=== PATIENT | female | born 1950 | race Caucasian/White ===

== ENCOUNTER → 2016-10-05 | Outpatient (CLI) | payer MEDICARE, BC ==
--- NOTE | 2016-10-05 12:13 | BD ---
EXAMINATION TYPE: MG DEXA axial skeleton. DATE OF EXAM: 10/05/2016 CLINICAL HISTORY: Postmenopausal state. Height: 66 Weight: 226 FRAX RISK QUESTIONS: Alcohol (3 or more units per day): no Family History (Parent hip fracture): yes, mother Glucocorticoids (More than 3mos): inhaler only as needed for several years (Ex: prednisone, prednisolone, methylprednisolone, dexamethasone, and hydrocortisone). History of Fracture in Adulthood: no Secondary Osteoporosis: 1. Type 1 Diabetes: no 2. Hyperthyroidism: no 3. Menopause before 45: no, age 50 but hysterectomy age 42 4. Malnutrition: no 5. Chronic liver disease: no Rheumatoid Arthritis: no Current Tobacco Use: no RISK FACTORS HISTORY OF: Family History of Osteoporosis: yes, mother Active: yes Diet low in dairy products/other sources of calcium: at least one serving a day Postmenopausal woman: yes Take estrogen and/or progesterone medications: not now How long: hormonal contraceptives about 5 years when younger Lost more than 2 inches in height since high school: no Frequent falls: no Poor Health: no Hyperparathyroidism: no Adrenal Insufficiency: no MEDICATIONS: Prednisone or other steroids:inhaler only as needed How Long: for several years Thyroid Medications: yes Which medication: [place] How Long: about 20 years Osteoporosis Medications: no Additional Medications: blood pressure meds, baby aspirin, cholesterol meds Additional History: hypothyroid, diagnosed with asthma EXAM MEASUREMENTS: Bone mineral densitometry was performed using the [employer] System. Bone mineral density as measured about the Lumbar spine is: ----- L1-L4(G/cm2): 1.305 T Score Values are as follows: ----- L2: 4.0 ----- L3: 2.0 ----- L4: -0.9 ----- L1-L4: 1.0 Bone mineral density not previously done at this facility; previously done at a physician office Bone mineral density about the R hip (g/cm2): 1.046 Bone mineral density about the L hip (g/cm2): 0.987 T Score values are as follows: -----R Neck: 0.1 -----L Neck: -0.4 -----R Total: 0.8 -----L Total: 0.3 Bone mineral density not previously done at this facility; previously done at a physician office IMPRESSION: Normal (Values between +1 and -1 indicate normal bone mass). Consider repeating this study in 5 year s or sooner if there is some new clinical indication. NOTE: T-SCORE=SD OF THE YOUNG ADULT MEAN.
--- NOTE | 2016-10-07 08:51 | MM ---
Reason for exam: screening (asymptomatic). Last mammogram was performed 1 year and 4 months ago. History: Patient is postmenopausal and history of other cancer. Benign stereotactic core biopsy of the left breast, July 30, 1999. Cyst aspiration of the right breast. Took hormonal contraceptives for 5 years beginning at age 21. Physical Findings: A clinical breast exam by your physician is recommended on an annual basis and results should be correlated with mammographic findings. MG 3D Screening Mammo W/Cad Bilateral CC and MLO view(s) were taken. Prior study comparison: May 31, 2015, bilateral MG 3d screening mammo w/cad. April 06, 2014, bilateral MG screening mammo w CAD. The breast tissue is almost entirely fat. Previous mammotome biopsy within the left breast. Asymmetric breast tissue in the left breast. This finding is changed when compared with previous exams. ASSESSMENT: Incomplete: need additional imaging evaluation, BI-RAD 0 RECOMMENDATION: Special view mammogram of the left breast. If lesion persists on supplemental views, image directed ultrasound is recommended. [facility] will attempt to contact patient to return for supplemental views and ultrasound if indicated.
== END | disposition home or self-care (01) ==
LOC: RADMAMWWP 08:21
PROVIDERS: ATTEND Family Medicine
DX: Z12.31 Encounter for screening mammogram for malignant neoplasm of breast (principal); Z78.0 Asymptomatic menopausal state
CPT/HCPCS: 77080; 77063; G0202

== ENCOUNTER → 2016-10-09 | Outpatient (CLI) | payer MEDICARE, BC ==
--- NOTE | 2016-10-13 07:21 | MM ---
Reason for exam: additional evaluation requested from abnormal screening. Last mammogram was performed less than 1 month ago. History: Patient is postmenopausal and history of other cancer. Benign stereotactic core biopsy of the left breast, July 30, 1999. Cyst aspiration of the right breast. Took hormonal contraceptives for 5 years beginning at age 21. Physical Findings: Nurse did not find any significant physical abnormalities on exam. MG 3D Work Up W/Cad LT ML and spot compression MLO view(s) were taken of the left breast. Prior study comparison: October 05, 2016, bilateral MG 3d screening mammo w/cad. The breast tissue is heterogeneously dense. This may lower the sensitivity of mammography. There is no discrete abnormality.and disperses on compression. No significant new findings when compared with previous films. These results were verbally communicated with the patient and result sheet given to the patient on 10/09/16. ASSESSMENT: Benign, BI-RAD 2 RECOMMENDATION: Return to routine screening mammogram schedule for both breasts.
== END ==
LOC: RADMAMWWP 14:27
PROVIDERS: ATTEND Family Medicine
DX: R92.8 Other abnormal and inconclusive findings on diagnostic imaging of breast (principal)
CPT/HCPCS: G0206; G0279

== ENCOUNTER → 2017-09-30 | Outpatient (CLI) | payer MEDICARE, BC ==
--- NOTE | 2017-09-30 09:09 | US ---
EXAMINATION TYPE: US thyroid st tissue head/neck DATE OF EXAM: 09/30/2017 COMPARISON: NONE CLINICAL HISTORY: E03.8 HYPOTHYROIDISM. GLAND SIZE: Right Lobe: 3.2 x 1.3 x 0.5 cm Overall Parenchyma: homogenous Left Lobe: 3.2 x 1.2 x 0.8 cm Overall Parenchyma: homogeneous Isthmus Thickness: 0.1 cm NODULES RIGHT: # of nodules measured on right: 0 LEFT: # of nodules measured on left: 0 ISTHMUS: # of nodules measured in the isthmus: 0 Bilateral neck scanned, no evidence of lymphadenopathy. IMPRESSION: 1. Normal thyroid scan
== END | disposition home or self-care (01) ==
LOC: RADUSWWP 06:49
PROVIDERS: ATTEND Internal Medicine Endocrinology, Diabetes & Metabolism
DX: E03.8 Other specified hypothyroidism (principal)
CPT/HCPCS: 76536

== ENCOUNTER → 2017-12-13 | Outpatient (CLI) | payer MEDICARE, BC ==
--- NOTE | 2017-12-15 10:52 | MM ---
Reason for exam: screening (asymptomatic). Last mammogram was performed 1 year and 2 months ago. History: Patient is postmenopausal and history of other cancer. Benign stereotactic core biopsy of the left breast, July 30, 1999. Cyst aspiration of the right breast. Took hormonal contraceptives for 5 years beginning at age 21. Physical Findings: A clinical breast exam by your physician is recommended on an annual basis and results should be correlated with mammographic findings. MG 3D Screening Mammo W/Cad Bilateral CC and MLO view(s) were taken. Prior study comparison: October 09, 2016, left breast MG 3d work up w/cad LT. October 05, 2016, bilateral MG 3d screening mammo w/cad. There are scattered fibroglandular densities. Previous mammotome biopsy in the left breast. Focal asymmetry right inner CC view, stable. No significant changes when compared with prior studies. ASSESSMENT: Benign, BI-RAD 2 RECOMMENDATION: Routine screening mammogram of both breasts in 1 year.
== END | disposition home or self-care (01) ==
LOC: RADMAMWWP 16:26
PROVIDERS: ATTEND Family Medicine
DX: Z12.31 Encounter for screening mammogram for malignant neoplasm of breast (principal)
CPT/HCPCS: 77063; 77067

== ENCOUNTER → 2018-06-28 | Outpatient (CLI) | payer MEDICARE ==
--- NOTE | 2018-06-28 09:01 | CT ---
EXAMINATION TYPE: CT sinus wo con DATE OF EXAM: 06/28/2018 COMPARISON: None HISTORY: chronic sinusitis CT DLP: 660.4 mGycm. Automated Exposure Control for Dose Reduction was Utilized. TECHNIQUE: CT scan of the sinuses is performed without contrast, axial images are obtained, coronal r eformatted images are also reviewed. FINDINGS: Hyperostosis of the frontal bone noted. Mild mucosal thickening involving the ethmoid air c ells and right maxillary sinus. 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 There is a nasal septal deviation to the right. Mastoid, sphenoid and frontal sinuses demonstrate no abnormal soft tissue attenuation. The ostiomeatal comple x is patent bilaterally on the coronal images. Visualized portion of mastoid air cells show no abnormal opacification. The globes are intact bilate rally. IMPRESSION: 1. Changes of mild chronic cystitis.
== END ==
LOC: RADCTMAIN 08:27
PROVIDERS: ATTEND Otolaryngology
DX: J32.9 Chronic sinusitis, unspecified (principal)
CPT/HCPCS: 70486

== ENCOUNTER → 2018-12-14 | Outpatient (CLI) | payer MEDICARE ==
--- NOTE | 2018-12-14 13:37 | MM ---
Reason for exam: screening (asymptomatic). Last mammogram was performed 1 year ago. History: Patient is postmenopausal and has history of other cancer at age 48. Benign stereotactic core biopsy of the left breast, July 30, 1999. Took hormonal contraceptives for 5 years beginning at age 21. Physical Findings: A clinical breast exam by your physician is recommended on an annual basis and results should be correlated with mammographic findings. MG Screening Mammo w CAD Bilateral CC and MLO view(s) were taken. Prior study comparison: December 13, 2017, bilateral MG 3d screening mammo w/cad. October 09, 2016, left breast MG 3d work up w/cad LT. There are scattered fibroglandular densities. Benign appearing bilateral calcifications. No suspicious abnormality. Left biopsy marker noted. No significant changes when compared with prior studies. ASSESSMENT: Benign, BI-RAD 2 RECOMMENDATION: Routine screening mammogram of both breasts in 1 year.
== END | disposition home or self-care (01) ==
LOC: RADMAMWWP 09:26
PROVIDERS: ATTEND Family Medicine
DX: Z12.31 Encounter for screening mammogram for malignant neoplasm of breast (principal)
CPT/HCPCS: 77067

== ENCOUNTER → 2019-12-19 | Outpatient (CLI) | payer MEDICARE ==
--- NOTE | 2019-12-20 08:31 | MM ---
Reason for exam: screening (asymptomatic). Last mammogram was performed 1 year ago. History: Patient is postmenopausal and has history of other cancer at age 48. Benign stereotactic core biopsy of the left breast, July 30, 1999. Took hormonal contraceptives for 5 years beginning at age 21. Physical Findings: A clinical breast exam by your physician is recommended on an annual basis and results should be correlated with mammographic findings. MG 3D Screening Mammo W/Cad Bilateral CC and MLO view(s) were taken. Prior study comparison: December 14, 2018, bilateral MG screening mammo w CAD. December 13, 2017, bilateral MG 3d screening mammo w/cad. There are scattered fibroglandular densities. Stable benign calcifications. There is no discrete abnormality. No significant changes when compared with prior studies. ASSESSMENT: Benign, BI-RAD 2 RECOMMENDATION: Routine screening mammogram of both breasts in 1 year.
== END | disposition home or self-care (01) ==
LOC: RADMAMWWP 09:39
PROVIDERS: ATTEND Family Medicine
DX: Z12.31 Encounter for screening mammogram for malignant neoplasm of breast (principal)
CPT/HCPCS: 77063; 77067

== ENCOUNTER → 2020-01-26 | Outpatient (CLI) | payer MEDICARE ==
--- NOTE | 2020-01-26 16:10 | BD ---
EXAMINATION TYPE: Axial Bone Density DATE OF EXAM: 01/26/2020 COMPARISON: NONE CLINICAL HISTORY: Height: 5 FT 6 IN Weight: 224 FRAX RISK QUESTIONS: Alcohol (3 or more units per day): NO Family History (Parent hip fracture): YES Glucocorticoids (More than 3mos): INHALER NEEDED RARELY (Ex: prednisone, prednisolone, methylprednisolone, dexamethasone, and hydrocortisone). History of Fracture in Adulthood: NO Secondary Osteoporosis: 1. Type 1 Diabetes: NO 2. Hyperthyroidism: NO 3. Menopause before 45: NO 4. Malnutrition: NO 5. Chronic liver disease: NO Rheumatoid Arthritis: NO Current Tobacco Use: NO RISK FACTORS HISTORY OF: Family History of Osteoporosis: YES Active: SOMEWHAT Diet low in dairy products/other sources of calcium: NO Postmenopausal woman: PART HYST AGE 42 SYMPTOMS AGE 50 Take estrogen and/or progesterone medications: NONE Lost more than 2 inches in height since high school: YES MEDICATIONS: Thyroid Medications: YES Which medication: SYNTHROID How Lon YEARS Additional Medications: SYNTHROID,BLOOD PRESSURE MEDS, BABY ASPIRIN, CHOLESTEROL MEDS, PAXIL, ANXIET Y MEDS Additional History: EXAM MEASUREMENTS: Bone mineral densitometry was performed using the [employer]. Bone mineral density as measured about the Lumbar spine is: ----- L1-L4(G/cm2): 1.344 T Score Values are as follows: ----- L2: 3.2 ----- L3: 3.1 ----- L4: 0.0 ----- L1-L4: 1.4 Bone mineral density has: INCREASED 4.9 % since study of: 2017 Bone mineral density about the R hip (g/cm2): 0.940 Bone mineral density about the L hip (g/cm2): 0949 T Score values are as follows: -----R Neck: -0.7 -----L Neck: -0.6 -----R Total: 0.2 -----L Total: -0.1 Bone mineral density has: DECREASED -5.9 % since study of: 2017 IMPRESSION: Normal (Values between +1 and -1 indicate normal bone mass). Consider repeating this study in 5 year s or sooner if there is some new clinical indication. NOTE: T-SCORE=SD OF THE YOUNG ADULT MEAN.
== END | disposition home or self-care (01) ==
LOC: RADBDWWP 09:57
PROVIDERS: ATTEND Obstetrics & Gynecology
DX: M89.9 Disorder of bone, unspecified (principal)
CPT/HCPCS: 77080

== ENCOUNTER → 2021-01-09 | Outpatient (CLI) | payer SELFPAY ==
--- NOTE | 2021-01-10 12:40 | MM ---
Reason for exam: screening (asymptomatic). Last mammogram was performed 1 year and 1 month ago. History: Patient is postmenopausal and has history of other cancer at age 48. Benign stereotactic core biopsy of the left breast, July 30, 1999. Took hormonal contraceptives for 5 years beginning at age 21. Physical Findings: A clinical breast exam by your physician is recommended on an annual basis and results should be correlated with mammographic findings. MG 3D Screening Mammo W/Cad Bilateral CC and MLO view(s) were taken. Prior study comparison: December 19, 2019, bilateral MG 3d screening mammo w/cad. December 14, 2018, bilateral MG screening mammo w CAD. Finding: There are intermediate concern, suspicious grouped/clustered, fine calcifications in the outer quadrant, middle position of the left breast 8cm from the nipple. Previous mammotome biopsy in the left breast. New finding since December 19, 2019 and December 14, 2018. ASSESSMENT: Incomplete: need additional imaging evaluation, BI-RAD 0 RECOMMENDATION: Special view mammogram of the left breast. [facility] will attempt to contact patient to return for supplemental views.
== END | disposition home or self-care (01) ==
LOC: RADMAMWWP 15:51
PROVIDERS: ATTEND Family Medicine
DX: Z12.31 Encounter for screening mammogram for malignant neoplasm of breast (principal); Z78.0 Asymptomatic menopausal state; Z85.89 Personal history of malignant neoplasm of other organs and systems
CPT/HCPCS: 77063; 77067

== ENCOUNTER → 2021-01-20 | Outpatient (CLI) | payer MEDICARE ==
[~2021-01-20] MED LIST: BAMLANIVIMAB (EUA) 700 MG, ETESEVIMAB (EUA) 1,400 MG in SODIUM CHLORIDE 0.9% 50 ML IVPB NR; SODIUM CHLORIDE 0.9% 50 ML IVPB NR; SODIUM CHLORIDE 0.9% 500 ML 500 ML in EMPTY BAG 1 BAG IV PRN
[2021-01-20 08:35] VITALS: RESP 16; TEMP 96.4
[2021-01-20 09:39] VITALS: BP 148/78; PULSE 68
== END ==
LOC: PROCWHC3 08:01
PROVIDERS: ATTEND Nurse Practitioner Family
DX: U07.1 COVID-19 (principal); E66.9 Obesity, unspecified; Z68.35 Body mass index [BMI] 35.0-35.9, adult; Z88.0 Allergy status to penicillin
CPT/HCPCS: 96360; J3490; M0245

== ENCOUNTER → 2021-01-28 | Outpatient (CLI) | payer MEDICARE ==
--- NOTE | 2021-01-28 12:21 | MM ---
Reason for exam: additional evaluation requested from abnormal screening. Last mammogram was performed 1 month ago. History: Patient is postmenopausal and has history of other cancer at age 48. Benign stereotactic core biopsy of the left breast, July 30, 1999. Took hormonal contraceptives for 5 years beginning at age 21. Physical Findings: Nurse did not find any significant physical abnormalities on exam. MG 3D Work Up W/Cad LT CC with magnification, MLO with magnification, LM with magnification, and LM view(s) were taken of the left breast. Prior study comparison: December 19, 2019, bilateral MG 3d screening mammo w/cad. December 14, 2018, bilateral MG screening mammo w CAD. December 13, 2017, bilateral MG 3d screening mammo w/cad. October 05, 2016, bilateral MG 3d screening mammo w/cad. April 06, 2014, bilateral MG screening mammo w CAD. There are scattered fibroglandular densities. There is no discrete abnormality. No significant new findings when compared with previous films. These results were verbally communicated with the patient and result sheet given to the patient on 01/28/21. ASSESSMENT: Benign, BI-RAD 2 RECOMMENDATION: Return to routine screening mammogram schedule for both breasts.
== END | disposition home or self-care (01) ==
LOC: RADMAMWWP 10:41
PROVIDERS: ATTEND Family Medicine
DX: R92.8 Other abnormal and inconclusive findings on diagnostic imaging of breast (principal); Z78.0 Asymptomatic menopausal state
CPT/HCPCS: 77065; G0279; 77061

== ENCOUNTER → 2021-10-14 | Outpatient (CLI) | payer MEDICARE ==
--- NOTE | 2021-10-14 11:16 | US ---
EXAMINATION TYPE: US transvaginal DATE OF EXAM: 10/14/2021 COMPARISON: US pelvis 2016 CLINICAL HISTORY: R10.2 PELVIC PAIN,Z80.41 FAM HX OVARIAN CA. Partial hysterectomy, Pelvic pain, sist er with h/o ovarian CA TECHNIQUE: Transvaginal (TV). Transvaginal sonographic images of the pelvis were acquired. EXAM MEASUREMENTS: Uterus: Surgically absent Endometrial Stripe: Surgically absent Right Ovary: Not visualized due to overlying bowel Left Ovary: Not visualized due to overlying bowel 1. Uterus: Surgically absent 2. Endometrium: Surgically absent 3. Right Ovary: Obscured by overlying bowel gas 4. Left Ovary: Obscured by overlying bowel gas 5. Bilateral Adnexa: wnl 6. Posterior cul-de-sac: wnl Uterus remains surgically absent. No free fluid in the pelvis. Neither ovary identified. No adnexal m asses seen on images saved. IMPRESSION: As above. No significant change from 2016 ultrasound.
== END | disposition home or self-care (01) ==
LOC: RADUSWWP 10:21
PROVIDERS: ATTEND Obstetrics & Gynecology
DX: R10.2 Pelvic and perineal pain (principal); Z80.41 Family history of malignant neoplasm of ovary
CPT/HCPCS: 76830

== ENCOUNTER → 2021-10-15 | Outpatient (CLI) | payer MEDICARE | END | disposition home or self-care (01) | LOC: LABWHC1 10:53 | PROVIDERS: ATTEND Obstetrics & Gynecology | DX: R10.2 Pelvic and perineal pain (principal); Z80.41 Family history of malignant neoplasm of ovary | CPT/HCPCS: 36415; 86304 ==

== ENCOUNTER → 2022-02-06 | Outpatient (CLI) | payer MEDICARE ==
--- NOTE | 2022-02-09 12:59 | MM ---
Reason for Exam: Screening (asymptomatic). Last screening mammogram was performed 12 month(s) ago. Patient History: Menarche at age 14. First Full-Term at age 26. Hysterectomy at age 42. Postmenopausal. Other cancer, age 48. Hormonal Contraceptives, starting at age 21 for 5 years. 07/30/1999, Benign Stereotactic Core Biopsy on the left side. Risk Values: Valentine 5 year model risk: 2.3%. NCI Lifetime model risk: 6.6%. Prior Study Comparison: 12/19/2019 Bilateral Screening Mammogram, [facility]. 01/09/2021 Bilateral Screening Mammogram, [facility]. 01/28/2021 Left Diagnostic Mammogram, [facility]. Tissue Density: There are scattered fibroglandular densities. Findings: Analyzed By CAD. Unchanged asymmetric density lateral left CC view. Microclip lateral left breast from prior biopsy. A few scattered benign round calcifications remain. No significant change from prior exams. Overall Assessment: Benign, BI-RAD 2 Management: Screening Mammogram of both breasts in 1 year. 1. Patient should continue monthly self breast exams. 2. A clinical breast exam by your physician is recommended on an annual basis. 3. This exam should not preclude additional follow-up of suspicious palpable abnormalities. Electronically signed and approved by: Won Perkins M.D. Radiologist
== END | disposition home or self-care (01) ==
LOC: RADMAMWWP 12:40
PROVIDERS: ATTEND Family Medicine
DX: Z12.31 Encounter for screening mammogram for malignant neoplasm of breast (principal); Z78.0 Asymptomatic menopausal state
CPT/HCPCS: 77063; 77067

== ENCOUNTER → 2023-01-22 | Outpatient (CLI) | payer MEDICARE ==
--- NOTE | 2023-01-22 18:09 | CT ---
EXAMINATION TYPE: CT left knee - [facility]ANNA[place] Protocol CT DLP: 1065 mGycm, Automated exposure control for dose reduction was used. DATE OF EXAM: 01/22/2023 5:34 PM COMPARISON: None CLINICAL INDICATION:Female, 72 years old with history of PAIN IN LEFT KNEE M25.562; [facility], presurgical planning TECHNIQUE: Axial images were obtained of the CT left knee - [place] Protocol, Additional coronal and sag ittal reformatted images and soft tissue and bone window were obtained for review. 3-D reconstruction was created on a separate workstation. Contrast used: mL of , (None if empty) Oral contrast used: (None if empty) FINDINGS: The visualized portion of the hips demonstrate mild osteoarthrosis changes with osteophyte formation of the acetabulum. No acute intrapelvic process. The bony structures of the pelvis are inta ct. The visualized knee demonstrates osteophyte formation of the tibial plateau, the patella and femoral condyles. There is joint space narrowing and subchondral sclerosis. There is deformity to the medial aspect of the left tibial plateau with subchondral sclerosis and subchondral cystic change. There is a large left joint effusion. The right knee demonstrates joint space loss with sclerosis and osteoph yte formation of the tibial plateau patella and femoral condyles. Visualized ankle demonstrates multifocal osteoarthrosis changes with osteophyte formation and moderat e to severe joint space narrowing most pronounced in the left leg involving the navicular in the cune iforms. No evidence of fractures. The uterus is surgically absent. IMPRESSION: End-stage osteoarthrosis changes of the left knee and moderate to severe degeneration changes right k serena..
== END | disposition home or self-care (01) ==
LOC: RADCTMAIN 17:00
PROVIDERS: ATTEND Orthopaedic Surgery
DX: Z01.818 Encounter for other preprocedural examination (principal); M17.0 Bilateral primary osteoarthritis of knee; M21.162 Varus deformity, not elsewhere classified, left knee

== ENCOUNTER → 2023-02-06 | Outpatient (CLI) | payer MEDICARE ==
[2023-02-06 12:38] LABS: Prothrombin Time 10.5 sec (10.0-12.5)
[2023-02-06 12:39] LABS: Partial Thromboplastin Time 23.4 sec (22.0-30.0)
[2023-02-06 22:47] LABS: HCT 41.5 % (37.2-46.3); HGB 13.1 g/dL (12.0-15.0); MCH 29.8 pg (27.0-32.0); MCHC 31.6 g/dL (32.0-37.0); MCV 94.5 FL (80.0-97.0); NRBC Per 100 WBC 0 X 10*3/uL (0.00-0.01); Platelet Count 239 X 10*3/uL (140-440); RBC 4.39 X 10*6/uL (4.10-5.20); RDW 14.3 % (11.5-14.5); WBC 5.94 X 10*3/uL (4.50-10.00)
[2023-02-06 22:55] LABS: ALT 15 U/L (8-44); AST 13 U/L (13-35); Albumin 4.3 g/dL (3.8-4.9); Albumin/Globulin Ratio 1.95 Ratio (1.60-3.17); Alkaline Phosphatase 76 U/L (41-126); Blood Urea Nitrogen 14.7 mg/dL (9.0-27.0); Calcium 9.5 mg/dL (8.7-10.3); Carbon Dioxide 25.6 mmol/L (21.6-31.8); Chloride 104 mmol/L (96-109); Globulin 2.2 g/dL (1.6-3.3); Glucose 94 mg/dL (70-110); Potassium 4.6 mmol/L (3.5-5.5); Sodium 140 mmol/L (135-145); Total Bilirubin 0.4 mg/dL (0.3-1.2); Total Protein 6.5 g/dL (6.2-8.2)
== END | disposition home or self-care (01) ==
LOC: LABPAT 11:50
PROVIDERS: ATTEND Orthopaedic Surgery
DX: Z01.818 Encounter for other preprocedural examination (principal); E11.9 Type 2 diabetes mellitus without complications; M17.12 Unilateral primary osteoarthritis, left knee; Z22.322 Carrier or suspected carrier of Methicillin resistant Staphylococcus aureus
CPT/HCPCS: 80053; 83036; 85027; 85610; 85730; 87070; 93005

== ENCOUNTER 2023-02-17 11:43 | Observation (INO) | payer MEDICARE ==
[~2023-02-17 11:43] MED LIST changes: +ACETAMINOPHEN TAB 500 MG TAB PO PRN; -BAMLANIVIMAB (EUA) 700 MG, ETESEVIMAB (EUA) 1,400 MG in SODIUM CHLORIDE 0.9% 50 ML IVPB NR; +DEXAMETHASONE SOD PHOSPHATE 10 MG/ML 1 ML VIAL IV PRN; +DOCUSATE 100 MG CAP PO PRN; +FAMOTIDINE 20 MG/2 ML VIAL IVP PRN; +HYDROmorphone 0.5 MG/0.5 ML SYRINGE IVP PRN; +KETOROLAC 15 MG/ML 1 ML VIAL IVP PRN; +LIDOCAINE 1% (10MG/ML) FOR IV START INTRADERMA PRN; +ONDANSETRON 4 MG/2 ML VIAL IVP PRN; -SODIUM CHLORIDE 0.9% 50 ML IVPB NR; -SODIUM CHLORIDE 0.9% 500 ML 500 ML in EMPTY BAG 1 BAG IV PRN; +TRANEXAMIC 1,000 MG/100ML-NACL 1,000 MG in SALINE 1 100ML.BAG IV PRN; +TRANEXAMIC 1,000 MG/100ML-NACL 1,000 MG in SALINE 1 100ML.BAG IVPB PRN; +oxyCODONE ER 10 MG TAB.ER.12H PO PRN
[2023-02-17] MEDS: LACTATED RINGERS 1,000 ML IV SCH (11:56)
[2023-02-17] MEDS ORDERED: MIDAZOLAM 2 MG/2 ML VIAL IVP ONE (12:37)
[2023-02-17] MEDS ORDERED: fentaNYL (PF) 50 MCG/ML 2 ML AMP IVP ONE (12:38)
[2023-02-17] MEDS ORDERED: KETAMINE HCL IN 0.9 % NACL 50 MG/5 ML SYRINGE ONE (12:58)
[2023-02-17] MEDS ORDERED: TRANEXAMIC 1,000 MG/100ML-NACL PREMIX BAG ONE (12:58)
[2023-02-17] MEDS ORDERED: MIDAZOLAM 2 MG/2 ML VIAL ONE (12:58)
[2023-02-17] MEDS ORDERED: HYDROmorphone (PF) 1 MG/ML ONE (12:58)
[2023-02-17] MEDS ORDERED: fentaNYL (PF) 50 MCG/ML 2 ML AMP ONE (12:58)
[2023-02-17] MEDS ORDERED: SUCCINYLCHOLINE CHLORIDE 200 MG/10 ML VIAL IV ONE (12:58)
[2023-02-17] MEDS ORDERED: LIDOCAINE 1% INJ 10MG/ML (20 ML MDV) ONE (12:58)
[2023-02-17] MEDS ORDERED: PROPOFOL 10 MG/ML 20 ML VIAL IV ONE (12:58)
[2023-02-17] MEDS ORDERED: ROPIVACAINE 5 MG/ML 30 ML VIAL ONE (12:58)
[2023-02-17] MEDS ORDERED: PHENYLEPHRINE 10 MG/ML VIAL ONE (12:58)
[2023-02-17] MEDS: ROPIVACAINE/EPI/CLONIDINE/KET 50 ML SYRINGE MISCELLANE PRN ×2 (13:40→14:55)
[2023-02-17] MEDS ORDERED: HYDROcodone/APAP 5-325MG 1 EACH TAB PO PRN (15:41)
[2023-02-17] MEDS ORDERED: NALOXONE 0.4 MG/ML 1 ML VIAL IV PRN (15:41)
[2023-02-17] MEDS ORDERED: MAGNESIUM HYDROXIDE 2,400 MG/30 ML CUP PO PRN (15:41)
[2023-02-17] MEDS ORDERED: ONDANSETRON 4 MG/2 ML VIAL IVP PRN (15:41)
--- NOTE | 2023-02-17 15:49 | P.OP ---
Date of Procedure: 02/17/23 Preoperative Diagnosis: 1. Severe varus left knee osteoarthritis 2. BMI 33.3 Postoperative Diagnosis: Same Procedure(s) Performed: 1. Left total knee arthroplasty 2. Computer assisted musculoskeletal navigation using CT/MRI images 3. Application of negative pressure incisional wound VAC left knee < 50 sq cm, incision measuring 15-cm Implants: 1. [employer] CR Femur Size #4 2. [place] [employer] Taylor Tibial Base Size #4 with 12x50 stem (short stem was used due to the preoperative varus of 14.5) 3. [employer] CS poly Size #9-mm 4. [employer] Tri[employer]lon all poly patella, Size #29 Anesthesia: МАРИНА, regional Surgeon: Brayden Collins Blueprinting And Photocopy Supervisor #1: John Leos Estimated Blood Loss (ml): 200 IV fluids (ml): 800 Pathology: none sent Condition: stable Disposition: PACU Indications for Procedure: I met with the patient preoperatively in the office setting and discussed treatment of their symptomatic knee arthritis. They failed a long course of nonsurgical treatment and elected to proceed with an elective total knee replacement. I discussed the potential risks and complications at length and gave them ample time to ask questions. Risks discussed included: risks from an esthesia, superficial site surgical infection, acute and/or chronic periprosthetic joint infection, delayed wound healing, drainage, wound necrosis, instability, stiffness, stiffness requiring manipulation and/or revision surgery, damage to local blood vessels or nerves, aseptic loosening of the implants, extensor mechanism issues including disruption, patellar maltracking, avascular necrosis etc., continued or worsened knee pain, generalized dissatisfaction with surgical outcome, need for revision surgery, an inability to regain preinjury level of function, DVT, PE, other medical complications, and possibly loss of life or limb. The patient voiced their understanding that while these are the most common complications other less common complications are possible. They provided both their verbal and written consent to go forward with surgery. Operative Findings: The patient had 14.5 of varus after the patient's knee had been registered with the QBotix robotic system. This was corrected to 4-1/2 of varus with implant manipulation and a medial release. A short 12 x 50 mm stem was used due to the patient's preoperative varus of greater than 8. Description of Procedure: The patient was identified in preoperative holding and the correct operative extremity was verified and marked with a marker. I reviewed the consent form with the patient at length. All of their questions were answered. The patient was given a block by anesthesia. They were then brought back to the operating room. They were transferred onto the operating room table where a general anesthetic, preoperative antibiotics, and tranexamic acid were administered by anesthesia. A tourniquet was applied to the proximal aspect of the operative extremity. The contralateral extremity was padded under the heel and secured to the operating room table with a nonsterile blue towel and tape. The ipsilateral arm was carefully draped across the patient's chest and secured with a pillow and foam. A post was applied over the lateral aspect of the ipsilateral thigh and a bolster was placed under the ipsilateral foot. I verified that the operative extremity was stable and the knee was flexed to 90. The operative extremity was then placed in a leg leos, nonsterile drapes were applied, and the extremity was prepped and draped sterilely in the standard sterile fashion. Prior to starting surgery timeout was performed identifying the correct patient, operative extremity, and procedure. The leg was then elevated, exsanguinated with an Esmarch bandage, and the tourniquet was inflated. An anterior midline incision was made sharply with a scalpel. Once I had dissected deep to the superficial fascial layer medial and lateral flaps were elevated. A medial parapatellar arthrotomy was created. Upon opening the knee joint there were diffuse arthritic changes in all 3 compartments. The anterior horn of the medial meniscus were sharply released and a medial release was performed around the posterior medial corner of the knee to facilitate retractor placement. The fat pad was excised with electrocautery. The patella was found to be severely arthritic and a provisional cut was made with a sagittal saw to facilitate mobilization of the extensor mechanism during the procedure. Remnants of the ACL and PCL were then excised from the notch. 4 mm pins were then placed within the incision in the medial distal femur and proximal tibia. Arrays were applied to the pins and I verified they were completely tightened. The knee was then registered with the QBotix robot and manipulations in implant position were made to balance the knee and opitmize implant position. Using the QBotix robotic saw all cuts were made in accordance with our plan. After all bony fragments had been removed the cuts were verified with the planar probe. The tibia was then subluxed forward and sized. The knee was brought into flexion and a lamina call center analyst was placed to allow removal of the meniscal remnants both medially and laterally as well as posterior osteophytes. Local anesthetic was then infiltrated around the joint capsule. Trial implants were then placed within the knee. Range of motion and collateral ligament tension was then evaluated. Adjustments in implant size and position were then made accordingly. Once the knee was felt to be appropriately balanced the Hieu pins were removed. The patella was then recut, sized, and punched. A trial patellar button was then placed. With the trial components in place, the patella tracked midline. The femur was then drilled and the trial component removed. The trial tibial component was then appropriately rotated, pinned, and prepared for the keel. All trial components were then removed from the knee. The knee was thoroughly irrigated with pulsatile lavage. Cement was prepared via vacuum mixing in a bowl on the back table. I then hand pressurized cement into the femur and tibia and placed the implants beginning with the tibial base tray and poly liner, femoral component, and finally the patellar button. All extruded cement was removed including from the pin sites. Once the cement had hardened the knee was evaluated one final time with the final polyethylene liner in place. The knee had full extension and flexion and felt stable to varus and valgus stress throughout the arc of motion. The tourniquet was released and with the tourniquet down the patella tracked midline. All bleeders were controlled with electrocautery. The knee was then soaked for 3 minutes with a dilute Betadine soak. The knee was thoroughly irrigated using 3 L of sterile saline and pulsatile lavage. A deep drain was placed. The extensor mechanism was then reapproximated using pop off Vicryl sutures followed by a running barbed suture. The knee was then closed in layers with a 0 strata fix for the deep fascial layer, 2-0 strata fix for the superficial subcutaneous layer and Monocryl and 3- 0 nylong for the skin. A sterile incisional wound VAC and drain sponge were applied. The wound VAC had excellent seal. I verified that all instrument, sponge, and sharp counts were correct. The patient was then transferred off the operating room table, extubated, and brought to recovery having tolerated the procedure well. Yoni Leos DPM was required as a skilled customer support assistant due to the complexity of the surgery for patient positioning, exposure, retraction, placement of implants, closure of wound and application of dressing. PLAN: The patient can weight-bear as tolerated on the operative extremity. DVT prophylaxis with aspirin 81 mg twice a day based on preoperative risk stratification. Follow-up in the office in 2 weeks for wound check and x-rays of the knee including an AP and lateral.
[2023-02-17] MEDS ORDERED: LACTATED RINGERS 1,000 ML IV ONE (16:41)
--- NOTE | 2023-02-17 16:43 | XR ---
EXAMINATION TYPE: XR knee limited LT DATE OF EXAM: 02/17/2023 4:04 PM CLINICAL INDICATION:Female, 72 years old with history of Evaluation for Postop abnormality and alignm ent; [facility] COMPARISON: None. TECHNIQUE: XR knee limited LT; examined in Frontal, lateral and oblique projections. FINDINGS: Status post total knee arthroplasty changes with hardware in appropriate alignment and in tact. No evidence of fracture. Subcutaneous lucencies and lucencies within the joint consistent with surgical changes. Drainage catheter in place terminating above the patella. IMPRESSION: Status post total knee arthroplasty changes with hardware intact and appropriate alignment. No fractu res identified.
[2023-02-17] MEDS: hydrOXYzine pamoate 25 MG CAP PO PRN (17:33)
[2023-02-17] MEDS: HYDROcodone/APAP 10-325MG 1 EACH TAB PO PRN ×2 (17:34→23:00)
[2023-02-17] MEDS: SODIUM CHLORIDE 0.9% 1,000 ML IV SCH ×2 (18:03→18:50)
--- NOTE | 2023-02-17 19:31 | P.ANPRN ---
Procedure Note - Anesthesia - Nerve Block Performed Left iPack Single Time Out Performed: Yes (1237) Date of Procedure: 02/17/23 Procedure Start Time: 12:44 Procedure Stop Time: 12:48 Location of Patient: PreOp Indication: Acute Post-Operative Pain, Requested by Surgeon Specifically requested for management of pain by DrTonya: Brayden Collins Sedation Type: Sedate with meaningful contact maintained Preparation: Sterile Prep Position: Supine Catheter: None Needle Types: Pajunk Needle Gauge: 21 Ultrasound used to visualize needle placement: Yes Ultrasound used to observe medication spread: Yes Injectate: 0.5% Ropivacaine (see comment for volume) (15cc +5cc nacl pf) Blood Aspirated: No Pain Paresthesia on Injection Noted: No Resistance on Injection: Normal Image Stored and Saved: Yes Events: Uneventful and Well Tolerated
--- NOTE | 2023-02-17 19:31 | P.ANPRN ---
Procedure Note - Anesthesia - Nerve Block Performed Left Adductor Canal Single Time Out Performed: Yes (1237) Date of Procedure: 02/17/23 Procedure Start Time: 12:38 Procedure Stop Time: 12:43 Location of Patient: PreOp Indication: Acute Post-Operative Pain, Requested by Surgeon Specifically requested for management of pain by DrTonya: Brayden Collins Sedation Type: Sedate with meaningful contact maintained Preparation: Sterile Prep Position: Supine Catheter: None Needle Types: Pajunk Needle Gauge: 21 Ultrasound used to visualize needle placement: Yes Ultrasound used to observe medication spread: Yes Injectate: 0.5% Ropivacaine (see comment for volume) (15cc +5cc nacl pf) Blood Aspirated: No Pain Paresthesia on Injection Noted: No Resistance on Injection: Normal Image Stored and Saved: Yes Events: Uneventful and Well Tolerated
[2023-02-17] MEDS: ASPIRIN 81 MG PO SCH (20:10)
[2023-02-17] MEDS: SENNOSIDES-DOCUSATE SODIUM 1 EACH TAB PO SCH (20:10)
[2023-02-17] MEDS: diazePAM 5 MG TAB PO PRN (23:01)
[2023-02-18] MEDS: LACTATED RINGERS 1,000 ML IV SCH (06:15)
[2023-02-18] MEDS: hydrOXYzine pamoate 25 MG CAP PO PRN ×2 (07:22→12:12)
[2023-02-18] MEDS: HYDROcodone/APAP 10-325MG 1 EACH TAB PO PRN ×3 (07:22→17:35)
--- NOTE | 2023-02-18 07:59 | P.PN ---
Subjective Progress Note Date: 02/18/23 Doing well this morning. She has no complaints other than mild pain in her left knee. Objective - Vital Signs Vital signs: Vital Signs Temp 97.9 F 02/18/23 01:33 Pulse 84 02/18/23 01:33 Resp 18 02/18/23 01:33 BP 108/69 02/18/23 01:33 Pulse Ox 94 L 02/18/23 01:33 FiO2 Intake & Output 02/17/23 02/18/23 02/18/23 18:59 06:59 18:59 Intake Total 1290 Output Total 300 160 Balance 990 -160 Weight 93.7 kg Intake: IV 1050 Oral 240 Output: Drainage 100 160 Left Knee 100 160 Estimated Blood Loss 200 Other: Voiding Method Diaper # Voids 1 - Exam Patient is resting comfortably in bed. She is alert and able to answer questions. A focused examination of the left lower extremity was conducted. On inspection there is no intact incisional wound VAC. Her Hemovac drain was removed without difficulty. Her thigh and calf are soft. Distally she is able to actively plantar flex and dorsiflex her ankle and her toes. Assessment and Plan Assessment: Postoperative day #1 status post left total knee replacement, doing well Plan: 1. Weightbearing as tolerated on the operative extremity. Up with assistance. 2. DVT prophylaxis with aspirin 81 mg twice a day 3. Physical therapy for gait training and mobilization 4. Hemovac drain removed this morning. Leave surgical dressing in place. 5. Internal medicine for perioperative medical management 5. Disposition: Patient would like to discharge to rehab given the fact that she has no support at home. We will see how she does with physical therapy and attempt to make arrangements for discharge to rehab.
[2023-02-18 09:23] LABS: Basophils # (A) 0.03 X 10*3/uL (0.00-0.10); Basophils % (A) 0.3 %; Eosinophils # (A) 0.01 X 10*3/uL (0.04-0.35); Eosinophils % (A) 0.1 %; HCT 31.2 % (37.2-46.3); HGB 10.1 g/dL (12.0-15.0); Lymphocytes # (A) 0.79 X 10*3/uL (0.90-5.00); Lymphocytes % (A) 8.7 %; MCH 30.8 pg (27.0-32.0); MCHC 32.4 g/dL (32.0-37.0); MCV 95.1 FL (80.0-97.0); Mean Platelet Volume 11.4 FL (9.5-12.2); Monocytes # (A) 0.94 X 10*3/uL (0.20-1.00); Monocytes % (A) 10.4 %; NRBC Per 100 WBC 0 X 10*3/uL (0.00-0.01); Neutrophils # (A) 7.26 X 10*3/uL (1.80-7.70); Neutrophils % (A) 80.1 %; Platelet Count 179 X 10*3/uL (140-440); RBC 3.28 X 10*6/uL (4.10-5.20); RDW 14.7 % (11.5-14.5); WBC 9.07 X 10*3/uL (4.50-10.00)
[2023-02-18] MEDS ORDERED: LATANOPROST 0.005% OPHTH DROPS 2.5 ML BTL BOTH EYES SCH (09:45)
[2023-02-18] MEDS: LEVOTHYROXINE 88 MCG TAB PO SCH (10:18)
[2023-02-18] MEDS: ASPIRIN 81 MG PO SCH ×2 (10:18→21:06)
[2023-02-18] MEDS: SODIUM CHLORIDE 0.9% 1,000 ML IV SCH ×2 (12:11→22:24)
[2023-02-18] MEDS: HYDROmorphone 0.5 MG/0.5 ML SYRINGE IVP PRN ×2 (14:26→21:06)
--- NOTE | 2023-02-18 16:07 | P.CONS ---
History of Present Illness - Reason for Consult Consult date: 02/18/23 Medical management, postop left knee arthroplasty - History of Present Illness This is a 72-year-old female who was admitted under orthopedic services underwent left total knee arthroplasty with Dr. Collins. Medical was consulted for medical management as patient reports she follows with Dr. Malin in the outpatient setting with a past medical history of possible TIA although never diagnosed, hyperlipidemia, thyroid disorder, anxiety with depression. Patient denies any illicit drug use was a former smoker back in the 80s and rarely drinks alcohol. Patient did undergo presurgical clearance prior to this hospitalization. Review Of Systems: Constitutional: No fever, no chills, no night sweats. No weight change. No weakness, fatigue or lethargy. No daytime sleepiness. EENT: No headache. No blurred vision or double vision, no loss of vision. No loss of Hearing, no ringing in the ears, no dizziness. No nasal drainage or congestion. No epistaxis. No sore throat. Lungs: No shortness of breath, cough, no sputum production. No wheezing. Cardiovascular: No chest pain, no lower extremity edema. No palpitations. No paroxysmal nocturnal dyspnea. No orthopnea. No lightheadedness or dizziness. No syncopal episodes. Abdominal: No abdominal pain. No nausea, vomiting. No diarrhea. No const ipation. No bloody or tarry stools.. No loss of appetite. Genitourinary: No dysuria, increased frequency, urgency. No urinary retention. Musculoskeletal: No myalgias. No muscle weakness, no gait dysfunction, no frequent falls. No back pain. No neck pain. Reports left knee pain Integumentary: No wounds, no lesions. No rash or pruritus. No unusual bruising. No change in hair or nails. Neurologic: No aphasia. No facial droop. No change in mentation. No head injury. No headache. No paralysis. No paresthesia. Psychiatric: No depression. No anxiety. No mood swings. Endocrine: No abnormal blood sugars. No weight change. No excessive sweating or thirst. No cold intolerance. PHYSICAL EXAMINATION: GENERAL: The patient is alert and oriented x4, Well developed, well nourished. Obese HEENT: Pupils are round and equally reacting to light. EOMI. no scleral icterus. No conjunctival pallor. Normocephalic, atraumatic. No pharyngeal erythema. No thyromegaly. CARDIOVASCULAR: S1 and S2 muffled PULMONARY: diminished breath sounds bilaterally with no wheezing or rhonchi noted. ABDOMEN: soft. Nontender on exam. obese. non-distended, normoactive bowel sounds. No palpable organomegaly. MUSCULOSKELETAL: No joint swelling or deformity. EXTREMITIES: No cyanosis, clubbing, or pedal edema. Left knee surgical dressing is dry and intact with some minimal swelling noted of the lower extremity with no significant redness surrounding. NEUROLOGICAL: Gross neurological examination did not reveal any focal deficits. Diffuse weakness SKIN: No rashes. Assessment: Status post left total knee arthroplasty History of hyperlipidemia History of hypothyroidism History of anxiety/depression Obesity with a BMI of 33.3 GI prophylaxis DVT prophylaxis Full code Plan: Recommend to continue with current medications and management per orthopedic services. Patient is status post left total knee arthroplasty postop day 1. Patient was seen and evaluated by physical therapy recommending rehab and patient is agreeable. Pain management and DVT prophylaxis per orthopedics All medications reviewed and resumed as appropriate CBC reviewed and within normal limits, white count is 9.07, hemoglobin is 10.1. Vital signs are stable Incentive spirometer at the bedside and encouraged patient continue using at least 10 times every hour while awake We will continue to follow with orthopedics during hospitalization. Thank you currently for this consultation. The impression and plan of care has been dictated by Irasema Wing, nurse practitioner as directed. Dr. Vonda MD I have performed a history and examination and MDM of this patient, discussed the same with the dictator, and agree with the dictator's assessment and plan as written ,documented as a scribe. Based on total visit time, I have performed more than 50% of the visit. Any additional findings or plans will be noted. Past Medical History Past Medical History: CVA/TIA, Hyperlipidemia, Thyroid Disorder Additional Past Medical History / Comment(s): thinks she may have had a small dvt in past, possibly has had tia in past, History of Any Multi-Drug Resistant Organisms: None Reported Past Surgical History: Hysterectomy, Orthopedic Surgery, Tonsillectomy Additional Past Surgical History / Comment(s): torn meniscus lft , sinus surgery, Past Anesthesia/Blood Transfusion Reactions: No Reported Reaction Past Psychological History: Anxiety, Depression Additional Psychological History / Comment(s): on paxil and pristique Smoking Status: Former smoker Past Alcohol Use History: Rare Additional Past Alcohol Use History / Comment(s): quit 1985, Past Drug Use History: None Reported - Past Family History Father History Unknown: Yes Medications and Allergies Home Medications Medication Instructions Recorded Confirmed Type ALPRAZolam [Xanax] 0.25 mg PO DAILY PRN 02/12/23 02/17/23 History Atorvastatin [Lipitor] 20 mg PO MOWEFR 02/12/23 02/17/23 History Desvenlafaxine [Desvenlafaxine ER] 50 mg PO HS 02/12/23 02/17/23 History Latanoprost [Latanoprost 0.005%] 1 drop BOTH EYES DAILY 02/12/23 02/17/23 History Levothyroxine Sodium [Synthroid] 88 mcg PO DAILY 02/12/23 02/17/23 History Naproxen [Naprosyn] 500 mg PO DAILY 02/12/23 02/17/23 History PARoxetine HCL [Paxil] 30 mg PO HS 02/12/23 02/17/23 History ramipriL 5 mg PO HS 02/12/23 02/17/23 History Aspirin 81 mg PO BID #60 tab 02/18/23 Rx Diclofenac Sodium [Voltaren] 75 mg PO BID #60 tab 02/18/23 Rx Docusate [Colace] 100 mg PO BID #28 capsule 02/18/23 Rx HYDROcodone/APAP 5-325MG [[place] 1 - 2 tab PO Q6HR PRN #32 tab 02/18/23 Rx 5-325] Omeprazole 40 mg PO DAILY #30 cap 02/18/23 Rx Allergies Allergy/AdvReac Type Severity Reaction Status Date / Time Penicillins Allergy Unknown Verified 02/17/23 11:59 Physical Exam Vitals: Vital Signs Temp Pulse Resp BP Pulse Ox 02/18/23 08:00 98.4 F 77 16 122/76 96 02/18/23 01:33 97.9 F 84 18 108/69 94 L 02/17/23 18:39 83 18 131/70 95 02/17/23 17:41 18 95 02/17/23 17:40 97.5 F L 90 20 134/79 97 02/17/23 17:00 101 H 20 115/68 95 02/17/23 16:35 101 H 16 141/61 94 L 02/17/23 16:20 95 15 156/69 93 L 02/17/23 16:05 103 H 17 166/79 96 02/17/23 15:50 110 H 18 171/79 97 02/17/23 15:35 97.6 F 106 H 17 185/85 97 02/17/23 12:50 85 16 131/75 94 L 02/17/23 12:05 98.2 F 88 18 142/78 95 Intake and Output 02/17/23 02/18/23 02/18/23 22:59 06:59 14:59 Intake Total 340 Output Total 300 160 Balance 40 -160 Intake: IV 100 Oral 240 Output: Drainage 100 160 Left Knee 100 160 Estimated Blood Loss 200 Other: Voiding Method Diaper # Voids 1 1 Weight 93.7 kg Results CBC & Chem 7: 02/18/23 06:11 Labs: Abnormal Lab Results - Last 24 Hours (Table) 02/18/23 Range/Units 06:11 RBC 3.28 L (4.10-5.20) X 10*6/uL Hgb 10.1 L (12.0-15.0) g/dL Hct 31.2 L (37.2-46.3) % RDW 14.7 H (11.5-14.5) % Lymphocytes # 0.79 L (0.90-5.00) X 10*3/uL Eosinophils # 0.01 L (0.04-0.35) X 10*3/uL
[2023-02-18] MEDS: diazePAM 5 MG TAB PO PRN (17:35)
[2023-02-18] MEDS ORDERED: lisinopriL 20 MG TAB PO SCH (21:00)
[2023-02-18] MEDS ORDERED: PARoxetine 10 MG TAB PO SCH (21:00)
[2023-02-18] MEDS: SENNOSIDES-DOCUSATE SODIUM 1 EACH TAB PO SCH (21:06)
[2023-02-19] MEDS: HYDROcodone/APAP 10-325MG 1 EACH TAB PO PRN ×3 (01:36→13:41)
[2023-02-19] MEDS: diazePAM 5 MG TAB PO PRN (01:37)
[2023-02-19] MEDS: LACTATED RINGERS 1,000 ML IV SCH (05:17)
--- NOTE | 2023-02-19 08:37 | P.PN ---
Subjective Progress Note Date: 02/19/23 The patient is complaining of pain in her left knee this morning as her block is worn off. She states he was up several times yesterday to the bedside commode and to the bathroom. She is planning on going to rehab following discharge. She has no other complaints this morning. Objective - Vital Signs Vital signs: Vital Signs Temp 98.8 F 02/19/23 08:00 Pulse 76 02/19/23 08:00 Resp 17 02/19/23 08:00 BP 124/73 02/19/23 08:00 Pulse Ox 96 02/19/23 08:00 FiO2 Intake & Output 02/18/23 02/19/23 02/19/23 18:59 06:59 18:59 Intake Total 480 Balance 480 Intake: Oral 480 Other: Voiding Method Diaper Diaper # Voids 2 1 - Exam Is no sleeping in bed. Upon awakening she is alert and able to answer questions. A focused exam of the left lower extremity was conducted. On inspection there is no intact incisional wound VAC with good seal. There is moderate swelling in the thigh and calf but no jagjit calf tenderness. She is able to actively plantarflex and dorsiflex her ankle and her toes. Sensation is intact to light touch throughout the left foot. - Labs CBC & Chem 7: 02/18/23 06:11 Labs: Abnormal Lab Results - Last 24 Hours (Table) 02/18/23 Range/Units 06:11 RBC 3.28 L (4.10-5.20) X 10*6/uL Hgb 10.1 L (12.0-15.0) g/dL Hct 31.2 L (37.2-46.3) % RDW 14.7 H (11.5-14.5) % Lymphocytes # 0.79 L (0.90-5.00) X 10*3/uL Eosinophils # 0.01 L (0.04-0.35) X 10*3/uL Assessment and Plan Assessment: Post-operative day #2 status post left total knee replacement Plan: The new treatment as outlined yesterday. The patient is going to attempt to mobilize out of bed into a chair and to work with physical therapy today. Appreciate internal medicine's assistance of perioperative medical management. DVT prophylaxis with aspirin. Working towards discharge to rehab.
[2023-02-19] MEDS: LEVOTHYROXINE 88 MCG TAB PO SCH (08:41)
[2023-02-19] MEDS: ASPIRIN 81 MG PO SCH (08:41)
[2023-02-19] MEDS ORDERED: ATORVASTATIN 20 MG TAB PO SCH (09:38)
--- NOTE | 2023-02-19 14:12 | P.DS ---
Providers Date of admission: 02/17/23 15:30 Expected date of discharge: 02/19/23 Attending physician: Brayden Collins Consults: 02/17/23 17:25 Consult Physician Routine Consulting Provider: José Luis Barahona Consult Reason/Comments: medical management Do you want consulting provider notified?: Yes Primary care physician: Landy Malin - Discharge Diagnosis(es) (1) Primary localized osteoarthritis of left knee Current Visit: Yes Status: Acute (2) Status post total left knee replacement Current Visit: Yes Status: Acute Hospital Course: This is a 72 -year-old Female with history of degenerative arthritis to the left knee. They have failed outpatient conservative treatment and presents to discuss surgical options. After discussion and consideration the patient elects to proceed with total left knee arthroplasty. The patient is seen preoperatively by their primary care physician and cleared for surgery. The patient is taken to surgery on 02/17/2023 for total left knee arthroplasty. The procedure is performed without complication or sequelae. The patient is doing well postoperatively. Vital signs are stable on postop day #2. The patient is discharged to Inpatient rehabilitation in good condition. Please see med rec for accurate list of home medications. Patient Condition at Discharge: Good Plan - Discharge Summary Discharge Rx Participant: Yes New Discharge Prescriptions: New Docusate [Colace] 100 mg PO BID #28 capsule Omeprazole 40 mg PO DAILY #30 cap HYDROcodone/APAP 5-325MG [Lookout 5-325] 1 - 2 tab PO Q6HR PRN #32 tab PRN Reason: Pain Aspirin 81 mg PO BID #60 tab Diclofenac Sodium [Voltaren] 75 mg PO BID #60 tab No Action ALPRAZolam [Xanax] 0.25 mg PO DAILY PRN PRN Reason: Anxiety Desvenlafaxine [Desvenlafaxine ER] 50 mg PO HS PARoxetine HCL [Paxil] 30 mg PO HS Naproxen [Naprosyn] 500 mg PO DAILY Latanoprost [Latanoprost 0.005%] 1 drop BOTH EYES DAILY Levothyroxine Sodium [Synthroid] 88 mcg PO DAILY Atorvastatin [Lipitor] 20 mg PO MOWEFR ramipriL 5 mg PO HS Discharge Medication List ALPRAZolam [Xanax] 0.25 mg PO DAILY PRN 02/12/23 [History] Atorvastatin [Lipitor] 20 mg PO MOWEFR 02/12/23 [History] Desvenlafaxine [Desvenlafaxine ER] 50 mg PO HS 02/12/23 [History] Latanoprost [Latanoprost 0.005%] 1 drop BOTH EYES DAILY 02/12/23 [History] Levothyroxine Sodium [Synthroid] 88 mcg PO DAILY 02/12/23 [History] Naproxen [Naprosyn] 500 mg PO DAILY 02/12/23 [History] PARoxetine HCL [Paxil] 30 mg PO HS 02/12/23 [History] ramipriL 5 mg PO HS 02/12/23 [History] Aspirin 81 mg PO BID #60 tab 02/18/23 [Rx] Diclofenac Sodium [Voltaren] 75 mg PO BID #60 tab 02/18/23 [Rx] Docusate [Colace] 100 mg PO BID #28 capsule 02/18/23 [Rx] HYDROcodone/APAP 5-325MG [Lookout 5-325] 1 - 2 tab PO Q6HR PRN #32 tab 02/18/23 [Rx] Omeprazole 40 mg PO DAILY #30 cap 02/18/23 [Rx] Follow up Appointment(s)/Referral(s): Brayden Collins MD [Medical Doctor] - 2 Weeks Activity/Diet/Wound Care/Special Instructions: 1. Weight-bear as tolerated on your operative extremity unless instructed otherwise. Use a walker or other assistive device to ambulate. 2. Leave surgical dressing in place. If your dressing becomes saturated with blood, there is drainage, or the dressing becomes loose please contact the office. 3. It is okay to shower with your surgical dressing, but do not submerge in water (no hot tubs, bath's, swimming etc.) 4. Make sure to take her blood clot prevention medication as prescribed (aspirin, Eliquis, Xarelto, and Plavix are commonly prescribed medications for blood clot prevention) 5. While taking Lookout or Percocet for pain make sure you're taking a stool softener (Colace) and drink lots of water. 6. Keep all follow-up appointments as scheduled. You will usually be seen in 1-2 weeks following surgery. 7. Please contact the office with any questions or concerns [phone]
[2023-02-19] MEDS: SODIUM CHLORIDE 0.9% 1,000 ML IV SCH (14:23)
[2023-02-19 15:06] VITALS: BP 125/73; PULSE 92; RESP 16; TEMP 99.1
[2023-02-19] MEDS ORDERED: LATANOPROST 0.005% OPHTH DROPS 2.5 ML BTL BOTH EYES SCH (21:00)
--- NOTE | 2023-02-20 07:13 | P.PN ---
Subjective Progress Note Date: 02/19/23 - Reason for Consult Consult date: 02/18/23 Medical management, postop left knee arthroplasty - History of Present Illness This is a 72-year-old female who was admitted under orthopedic services underwent left total knee arthroplasty with Dr. Collins. Medical was consulted for medical management as patient reports she follows with Dr. Malin in the outpatient setting with a past medical history of possible TIA although neve r diagnosed, hyperlipidemia, thyroid disorder, anxiety with depression. Patient denies any illicit drug use was a former smoker back in the 80s and rarely drinks alcohol. Patient did undergo presurgical clearance prior to this hospitalization. 02/19/2023 Patient seen in follow-up today currently sitting up in the chair and left knee is elevated. Patient reporting continued pain although somewhat more manageable today. Patient is awaiting insurance authorization for ECF and plan is to go to [facility]. Patient is afebrile with no reports of chest pain or shortness of breath. Patient is tolerating diet and report still voiding well with no reported nausea or vomiting. Patient reports has not had a bowel movement yet denies constipation. Patient is medically stable once insurance authorization is obtained for ECF. Encouraged increased activity as tolerated with restrictions per orthopedics. Encouraged incentive spirometer use at least 10 times every hour while awake. Home medications reviewed and resumed as appropriate. PHYSICAL EXAMINATION: GENERAL: The patient is alert and oriented x4, Well developed, well nourished. Obese HEENT: Pupils are round and equally reacting to light. EOMI. no scleral icterus. No conjunctival pallor. Normocephalic, atraumatic. No pharyngeal erythema. No thyromegaly. CARDIOVASCULAR: S1 and S2 muffled PULMONARY: diminished breath sounds bilaterally with no wheezing or rhonchi noted. ABDOMEN: soft. Nontender on exam. obese. non-distended, normoactive bowel sounds. No palpable organomegaly. MUSCULOSKELETAL: No joint swelling or deformity. EXTREMITIES: No cyanosis, clubbing, or pedal edema. Left knee surgical dressing is dry and intact with some minimal swelling noted of the lower extremity with no significant redness surrounding. NEUROLOGICAL: Gross neurological examination did not reveal any focal deficits. Diffuse weakness SKIN: No rashes. Assessment: Status post left total knee arthroplasty History of hyperlipidemia History of hypothyroidism History of anxiety/depression Obesity with a BMI of 33.3 GI prophylaxis DVT prophylaxis Full code Plan: Recommend to continue with current medications and management per orthopedic services. Patient is status post left total knee arthroplasty postop day 2. Patient was seen and evaluated by physical therapy recommending rehab and patient is agreeable. Pain management and DVT prophylaxis per orthopedics All medications reviewed and resumed as appropriate Incentive spirometer at the bedside and encouraged patient continue using at least 10 times every hour while awake Plan is for discharge to [facility] once insurance authorization is obtained. Patient is medically stable once cleared by orthopedics. We will continue to follow with orthopedics during hospitalization. Thank you kindly for this consultation. The impression and plan of care has been dictated by Irasema Wing, nurse practitioner as directed. Dr. Vonda MD I have performed a history and examination and MDM of this patient, discussed the same with the dictator, and agree with the dictator's assessment and plan as written ,documented as a scribe. Based on total visit time, I have performed more than 50% of the visit. Any additional findings or plans will be noted. Objective - Vital Signs Vital signs: Vital Signs Temp 99.1 F 02/19/23 14:00 Pulse 92 02/19/23 14:00 Resp 16 02/19/23 14:00 BP 125/73 02/19/23 14:00 Pulse Ox 93 L 02/19/23 14:00 FiO2 Intake & Output 02/19/23 02/20/23 02/20/23 18:59 06:59 18:59 Output Total 200 Balance -200 Output: Urine 200 Other: Voiding Method Diaper # Voids 1 - Labs CBC & Chem 7: 02/18/23 06:11
== END 2023-02-19 18:21 ==
LOC: OR 11:43 → 4SSUR 15:30
PROVIDERS: ADMIT Orthopaedic Surgery; ATTEND Orthopaedic Surgery
DX: M17.12 Unilateral primary osteoarthritis, left knee (principal); M25.762 Osteophyte, left knee; G89.18 Other acute postprocedural pain; E78.5 Hyperlipidemia, unspecified; F41.8 Other specified anxiety disorders; E03.9 Hypothyroidism, unspecified; E66.9 Obesity, unspecified; Z68.33 Body mass index [BMI] 33.0-33.9, adult; Z87.891 Personal history of nicotine dependence; Z79.890 Hormone replacement therapy; Z79.82 Long term (current) use of aspirin; Z79.899 Other long term (current) drug therapy; Z88.0 Allergy status to penicillin
CPT/HCPCS: 0055T; 27447; 64447; 64999; 85025; 96365; 96366; 96375; 96376

== ENCOUNTER → 2023-04-27 | Outpatient (CLI) | payer MEDICARE ==
--- NOTE | 2023-04-28 10:24 | MM ---
Reason for Exam: Screening (asymptomatic). Last mammogram was performed 1 year(s) and 3 month(s) ago. Patient History: Menarche at age 14. First Full-Term at age 26. Hysterectomy at age 42. Postmenopausal. Patient has history of breast feeding. Other cancer, age 48. Hormonal Contraceptives, starting at age 21 for 5 years. 07/30/1999, Benign Stereotactic Core Biopsy on the left side. Sister had ovarian cancer, age 51. Risk Values: Valentine 5 year model risk: 2.3%. NCI Lifetime model risk: 6.3%. Prior Study Comparison: 12/13/2017 Bilateral Screening Mammogram, [facility]. 12/14/2018 Bilateral Screening Mammogram, [facility]. 12/19/2019 Bilateral Screening Mammogram, [facility]. 01/09/2021 Bilateral Screening Mammogram, [facility]. 01/28/2021 Left Diagnostic Mammogram, [facility]. 02/06/2022 Bilateral MG 3D screening mammo w/cad, [facility]. Tissue Density: There are scattered areas of fibroglandular density. Findings: Analyzed By CAD. There is no suspicious group of microcalcifications or new suspicious mass in either breast. Benign appearing calcifications. Chronic nodular density along the upper outer quadrant left breast stable dating back to multiple prior exam. Overall Assessment: Benign, BI-RAD 2 Management: Screening Mammogram of both breasts in 1 year. . Patient should continue monthly self-breast exams. A clinical breast exam by your physician is recommended on an annual basis. This exam should not preclude additional follow-up of suspicious palpable abnormalities. Note on Valentine scores and lifetime risk: 1. A Valentine score greater than 3% is considered moderate risk. If this is the case, consider specialist referral to assess eligibility for a risk reducing agent. 2. If overall lifetime risk for the development of breast cancer is 20% or higher, the patient may qualify for future screening with alternating mammogram and breast MRI. Electronically signed and approved by: Krish Reed M.D. Radiologis
== END | disposition home or self-care (01) ==
LOC: RADMAMWWP 11:24
PROVIDERS: ATTEND Student in an Organized Health Care Education/Training Program
DX: Z12.31 Encounter for screening mammogram for malignant neoplasm of breast (principal); Z78.0 Asymptomatic menopausal state
CPT/HCPCS: 77063; 77067

== ENCOUNTER → 2023-05-06 | Outpatient (CLI) | payer MEDICARE | LOC: LABWHC1 16:25 | PROVIDERS: ATTEND Internal Medicine Endocrinology, Diabetes & Metabolism | DX: E03.8 Other specified hypothyroidism (principal); R73.03 Prediabetes | CPT/HCPCS: 36415; 83036; 84443 ==

== ENCOUNTER → 2023-07-08 | Outpatient (CLI) | payer MEDICARE ==
--- NOTE | 2023-07-08 15:57 | US ---
EXAMINATION TYPE: US venous doppler duplex LE BI DATE OF EXAM: 07/08/2023 3:50 PM COMPARISON: NONE CLINICAL INDICATION: Female, 73 years old with history of Z47.1 AFTERCARE FOLLOWING JOINT REPLACEMENT SURGER; Swelling and pain SIDE PERFORMED: Bilateral TECHNIQUE: The lower extremity deep venous system is examined utilizing real time linear array sonog anup with graded compression, doppler sonography and color-flow sonography. VESSELS IMAGED: Common Femoral Vein Deep Femoral Vein Greater Saphenous Vein * Femoral Vein Popliteal Vein Small Saphenous Vein * Proximal Calf Veins (* superficial vessels) Right Leg: Negative for DVT Left Leg: Negative for DVT, unable to visualize PTV's due to edema Results called to Arcelia Hutton at time of exam IMPRESSION: 1. Bilateral lower extremity ultrasound negative for deep venous thrombosis. 2. There is some mild limitation distal left posterior tibial veins due to patient condition
== END | disposition home or self-care (01) ==
LOC: RADUSWWP 15:21
PROVIDERS: ATTEND Orthopaedic Surgery
DX: M25.562 Pain in left knee (principal); L03.115 Cellulitis of right lower limb; L03.116 Cellulitis of left lower limb; Z47.1 Aftercare following joint replacement surgery
CPT/HCPCS: 93970

== ENCOUNTER → 2024-06-23 | Outpatient (CLI) | payer MEDICARE ==
--- NOTE | 2024-06-23 10:46 | CT ---
EXAMINATION TYPE: CT chest wo con DATE OF EXAM: 06/23/2024 9:47 AM COMPARISON: None CLINICAL INDICATION: Female, 74 years old with history of R91.1 SOLITARY PULMONARY NODULE; PHH, PULMO NARY NODULE TECHNIQUE: Multiple axial images were obtained through the chest. Sagittal and coronal reformats were created for review. MIP was performed on a separate workstation. Contrast used: mL of (None if empty) Oral contrast used: (None if empty) CT DLP: 327.4 mGycm, Automated exposure control for dose reduction was used. FINDINGS: LUNGS/ PLEURA: 13 mm left lower lobe groundglass nodule series 3 image 49. 4 mm left lower lobe nodul e series 4 image 46r with adjacent nodule measuring 2 mm same image. Right middle lobe 5 mm nodule se steve 7 image 20. No focal consolidation, pneumothorax or pleural effusion. AIRWAY: Patent and unremarkable. HEART: Size within normal limits. Moderate coronary artery calcifications present. MEDIASTINUM: No gross evidence of adenopathy. Moderate to large hiatal hernia. VASCULATURE: No aortic aneurysm. MUSCULOSKELETAL: Moderate disc degeneration changes are present throughout the thoracolumbar spine se condary to osteophyte formation and facet joint arthropathy. SOFT TISSUES/LYMPH NODES: Unremarkable. LOWER NECK: No significant findings. UPPER ABDOMEN: No significant findings. IMPRESSION: 1. Left lower lobe 13 mm groundglass follow-up in in 6-12 months is recommended. Other smaller pulmo nary nodules can be assessed at that time. 2. Moderate to large hiatal hernia. Follow up recommendations for incidental pulmonary nodules, if there are any, are per [employer] [employer] or [place]. https://radiopaedia.org/articles/hjleqxfufi-fzegidr-zuwjrgzdv-aryryg-[email or web address]-[email or web address]?lang=us [facility], , 06/23/2024 10:44 AM
== END | disposition home or self-care (01) ==
LOC: RADCTMAIN 09:27
PROVIDERS: ATTEND Internal Medicine Pulmonary Disease
DX: R91.1 Solitary pulmonary nodule (principal); J45.909 Unspecified asthma, uncomplicated; J44.89 Other specified chronic obstructive pulmonary disease; R06.00 Dyspnea, unspecified; K44.9 Diaphragmatic hernia without obstruction or gangrene; R91.8 Other nonspecific abnormal finding of lung field
CPT/HCPCS: 71250

== ENCOUNTER → 2024-07-21 | Outpatient (CLI) | payer MEDICARE ==
--- NOTE | 2024-07-21 18:51 | PE ---
EXAMINATION TYPE: PET CT fusion skull to thigh DATE OF EXAM: 07/21/2024 CLINICAL INDICATION:Female, 74 years old with history of R91.1 LUNG NODULE; TECHNIQUE: Following the intravenous administration of 11.17 mCi of F-18 FDG, whole body images are performed from the skull base to the Mid thigh. Images are reviewed on the computer in the coronal, axial, and sagittal planes. Reconstructed rotating images are created on independent workstation an d reviewed on the computer. A non-contrast CT is performed in conjunction with the PET scan. Glucos e level 95 mg/dL CT DLP: 1064 mGycm, Automated exposure control for dose reduction was used. COMPARISON: CT 06/23/2024, PET/CT None, MRI: None FINDINGS: Mediastinal SUV mean is 2.5. Hepatic parenchyma SUV mean is 3.1. SKULL BASE AND NECK: No suspicious radiotracer activity. CHEST, MEDIASTINUM, AND HILAR REGION: No suspicious radiotracer activity. Left lower lobe date opacity which is groundglass appearance has a different morphology in today's ex am with low lung volumes medially measuring 14 mm in totality max SUV 1.9. ABDOMEN AND PELVIS: No suspicious radiotracer activity. MUSCULOSKELETAL STRUCTURES: No suspicious radiotracer activity. OTHER CT: Coronary artery atherosclerosis. Moderate stool within the colon. The appendix is normal. T he uterus is surgically absent. IMPRESSION: Left lower lung ground glass of PET/CT which has a different morphology compared to 06/23/2024 suggest ing infectious/inflammatory process. Short-term follow-up in 3 6 months recommended to ensure resolut ion. With CT chest. [facility], , 07/21/2024 6:49 PM
== END | disposition home or self-care (01) ==
LOC: RADPETMAIN 07:21
PROVIDERS: ATTEND Internal Medicine Pulmonary Disease
DX: R91.1 Solitary pulmonary nodule (principal)
CPT/HCPCS: 78815; A9552